=== PATIENT | male | born 1970 | race Caucasian/White ===

== ENCOUNTER → 2017-05-25 | Outpatient (CLI) | payer BC | LOC: FIMAGING 14:13 | PROVIDERS: ATTEND Orthopaedic Surgery | DX: Z01.818 Encounter for other preprocedural examination (principal); M16.11 Unilateral primary osteoarthritis, right hip ==

== ENCOUNTER → 2018-05-16 | Outpatient (CLI) | payer BC | LOC: FIMAGING 12:06 | PROVIDERS: ATTEND Orthopaedic Surgery | DX: Z01.818 Encounter for other preprocedural examination (principal); M16.11 Unilateral primary osteoarthritis, right hip ==

== ENCOUNTER 2018-05-27 10:21 | Inpatient (IN) | payer BC ==
--- NOTE | 2018-05-27 06:23 | PDIAF ---
- Diagnosis Diagnosis: right hip djd Code Status: Full Code - Medication Management Discharge Medications: electronically signed and located in the Home Medication List. - Orders Services needed: Home Care, Physical Therapy Home Care Face to Face: I certify that this patient was under my care and that I had the required [id number] encounter meeting the encounter requirements on the discharge day. My findings support the fact that the patient is homebound as defined in Home Care Face to Face Continued: CMS Chapter 7 Medicare Benefits Manual 30.1.1 , The condition of the patient is such that there exists a normal inability to leave home and consequently, leaving home would require a considerable and taxing effort. Diet Recommendation: no restrictions on diet Diet Texture: Regular Texture Diet Additional Instructions: TOTAL JOINT ARTHROPLASTY DISCHARGE INSTRUCTIONS 1. Your surgeon follows the [facility] protocol for reducing your risk of DVT (blood clots) following surgery. Medication will be ordered to prevent blood clots. A sudden increase in calf pain and/or swelling could indicate a blood clot in your leg. If this occurs, please call your surgeon or his/her librarian assistant. An ultrasound of the leg may be necessary to diagnose a blood clot. If you have conditions that make you a higher risk for blood clots, your surgeon may use more aggressive ways to prevent them. Notify your surgeon if you think you are a high risk for blood clots. 2. Wear your white surgical stockings (ALOK hose) for 2 weeks. This decreases your swelling and may help prevent blood clots. It is ok to remove ALOK hose at night time to give your legs a break. 3. Swelling and bruising in the surgical leg is common. If you feel that it is excessive, please notify your surgeon. 4. Elevate your surgical leg with the ankle above the hip several times every day. Please keep the leg straight when you elevate by putting pillows under your foot. Do not put pillows under your knee. This will make being able to fully straighten more difficult. This is uncomfortable, but try to do it as much as possible. 5. For total knee replacements use compressive wrap on your knee for 3-5 days after surgery, then you can discontinue it. 6. Use a walker or crutches for 1-2 weeks. Progress your weight-bearing as tolerated. You may start to use a cane when you feel stable and safe. 7. You will receive physical therapy instructions in the hospital. Continue those exercises at home. There are additional exercises in the total joint booklet you were given before surgery. Outpatient physical therapy will begin 7- 10 days after surgery. Please schedule this in advance. 8. Use ice on your knee at least 3-5 times every day for 30 minutes. This helps reduce pain and swelling. Also use it at night before falling asleep. 9. Leave your surgical dressing in place for 2 weeks. Your dressing is water resistant, but not waterproof. Cover it with Saran Wrap or Jazbo-z-Rjof before showering. You may shower as soon as you feel safe entering a shower. If you notice bleeding from your incision 2 or 3 days after surgery, please notify your surgeon. 10. Due to narcotics, decreased activity and altered diet, most patients experience constipation after surgery. Use xpsc-zjk-slshsgd stool softeners while you are on narcotics. 11. You may drive a car when you are comfortable bearing weight, have good muscular control of your leg and are off narcotics. This usually occurs 2-4 weeks after surgery, depending on which leg was operated on. 12. If there are questions not addressed here, please refer the [facility] book given for more information. If you still have questions, please contact your surgeon s office. 13. If you have a life-threatening emergency, please call 911 and go to the emergency room immediately. For non-life threatening emergencies, please call your physicians office for advice before going to the emergency room. - Follow Up Care Current Providers and Referrals: Ruiz Schmitt MD [Medical Doctor] - Unknown,Unknown [Primary Care Provider] -
--- NOTE | 2018-05-27 06:23 | PDHPUP ---
History & Physical Update H&P update statement: This history and physical update is based on an assessment of the patient which was completed after admission or registration (within 24 hours), but prior to the surgery/procedure. H&P update: no change in patient's condition since H&P completed
[2018-05-27] MEDS ORDERED: ceFAZolin 2 GM/DEXTROSE 100 ML IV ONE (10:32)
[2018-05-27] MEDS ORDERED: FAMOTIDINE 20 MG TAB PO ONE (10:32)
[2018-05-27] MEDS ORDERED: ACETAMINOPHEN 325 MG TAB PO ONE (10:32)
[2018-05-27] MEDS ORDERED: LR 1,000 ML IV ONE (10:34)
[2018-05-27] MEDS ORDERED: ceFAZolin 1 GM VIAL ONE (10:35)
[2018-05-27] MEDS ORDERED: TRANEXAMIC ACID 2,000 MG in NS 100 ML IV ONE (11:13)
[2018-05-27] MEDS ORDERED: ROPIVACAINE 0.2% 80 MG, EPINEPHrine 0.2 MG, KETOROLAC TROMETHAMINE 30 MG, morphINE 10 M... IU ONE (11:13)
[2018-05-27] MEDS ORDERED: MIDAZOLAM 2 MG/2 ML VIAL IVP ONE (11:23)
--- NOTE | 2018-05-27 11:27 | PDANEPAE ---
ANE History of Present Illness djd R hip s/f R Jordin assisted ANNA ANE Past Medical History - Cardiovascular History Hx Hypertension: No Hx Arrhythmias: No Hx Chest Pain: No Hx Coronary Artery / Peripheral Vascular Disease: No Hx CHF / Valvular Disease: No Hx Palpitations: No - Pulmonary History Hx COPD: No Hx Asthma/Reactive Airway Disease: No Hx Recent Upper Respiratory Infection: No Hx Oxygen in Use at Home: No Hx Sleep Apnea: No Sleep Apnea Screening Result - Last Documented: Negative - Neurologic History Hx Cerebrovascular Accident: No Hx Seizures: No Hx Dementia: No - Endocrine History Hx Diabetes: No - Renal History Hx Renal Disorders: No - Liver History Hx Hepatic Disorders: No - Neurological & Psychiatric Hx Hx Neurological and Psychiatric Disorders: No - Cancer History Hx Cancer: No Cancer History Comment: ENLARGED/MASS APPENDIX. DX 05/2016. CICI-COLECTOMY 2016 - Congenital Disorder History Hx Congenital Disorders: No - GI History Hx Gastrointestinal Disorders: Yes Gastrointestinal History Comment: CICI-COLECTOMY FOR CANCER APPENDIX - Other Health History Other Health History: NEG - Chronic Pain History Chronic Pain: Yes (R HIP) - Surgical History Prior Surgeries: CRISSY RTC. APPENDECTOMY. CICI-COLECTOMY. HERNIA ANE Review of Systems Review of Systems: - Exercise capacity METS (RN): 5 METS ANE Patient History - Allergies Allergies/Adverse Reactions: weed Allergy (Mild, Uncoded 05/28/17 16:26) Hives - Home Medications Home medications: home medication list seen and reviewed Home Medications: Herbals/Supplements -Info Only 05/20/18 [Last Taken 05/20/18] - NPO status NPO Status: no food or drink >8 hours NPO Since - Liquids (Date): 05/27/18 NPO Since - Liquids (Time): 08:00 NPO Since - Solids (Date): 05/26/18 NPO Since - Solids (Time): 20:30 - Anes Hx Anes Hx: no prior problems - Smoking Hx Smoking Status: Never smoked - Alcohol Use Alcohol Use: None - Family Anes Hx Family Anes Hx: none Family Hx Anesthesia Complications: NEG ANE Labs/Vital Signs - Vital Signs Blood Pressure: 126/84 Heart Rate: 72 Respiratory Rate: 16 O2 Sat (%): 96 Height: 185.42 cm Weight: 99.79 kg ANE Physical Exam - Airway Neck exam: FROM Mallampati Score: Class 2 Mouth exam: normal dental/mouth exam - Pulmonary Pulmonary: no respiratory distress - Cardiovascular Cardiovascular: regular rate and rhythym - ASA Status ASA Status: I ANE Anesthesia Plan Anesthesia Plan: spinal
[2018-05-27] MEDS ORDERED: PROPOFOL/EMULSION 500 MG/50 ML BOTTLE IV ONE ×3 (11:50→13:08)
[2018-05-27] MEDS ORDERED: fentaNYL 100 MCG/2 ML INJ ONE ×2 (11:50→14:21)
[2018-05-27] MEDS ORDERED: MEPERIDINE 25 MG/0.5 ML AMP IVP PRN (13:27)
[2018-05-27] MEDS ORDERED: ALBUTEROL 3 ML DEYVIAL IH PRN (13:27)
[2018-05-27] MEDS ORDERED: ONDANSETRON 4 MG/2 ML VIAL IVP PRN ×2 (13:27→13:30)
[2018-05-27] MEDS ORDERED: DEXAMETHASONE 4 MG/ML VIAL IVP PRN (13:27)
[2018-05-27] MEDS ORDERED: NALOXONE HCL 0.4 MG/ML INJ IVP PRN (13:27)
[2018-05-27] MEDS ORDERED: PHENYLEPHRINE HCL 100 MCG/ML SYR IVP PRN (13:27)
[2018-05-27] MEDS ORDERED: PROMETHAZINE HCL 25 MG/ML INJ IVP PRN ×2 (13:27→13:30)
[2018-05-27] MEDS ORDERED: METOCLOPRAMIDE 10 MG/2 ML VIAL IVP PRN ×2 (13:27→13:30)
[2018-05-27] MEDS ORDERED: LR 500 ML IV PRN (13:27)
[2018-05-27] MEDS ORDERED: LABETALOL HCL 5 MG/ML 20 ML MDV IVP PRN (13:27)
[2018-05-27] MEDS ORDERED: oxyCODONE IR 5 MG TAB PO PRN (13:27)
[2018-05-27] MEDS ORDERED: fentaNYL 100 MCG/2 ML INJ IVP PRN (13:27)
[2018-05-27] MEDS ORDERED: PROMETHAZINE HCL 25 MG SUPPR PR PRN (13:30)
[2018-05-27] MEDS ORDERED: LR 1,000 ML IV SCH (13:30)
[2018-05-27] MEDS ORDERED: BISACODYL 10 MG SUPP PR PRN (13:30)
[2018-05-27] MEDS ORDERED: diphenhydrAMINE 25 MG CAP PO PRN (13:30)
[2018-05-27] MEDS ORDERED: DIPHENOXYLATE/ATROPINE LOMOTIL 1 TAB PO PRN (13:30)
[2018-05-27] MEDS ORDERED: LACTULOSE 20 GM/30 ML UDCUP PO PRN (13:30)
[2018-05-27] MEDS ORDERED: TEMAZEPAM 15 MG CAP PO PRN (13:30)
[2018-05-27] MEDS ORDERED: POLYETHYLENE GLYCOL 3350 17 GM PKT PO PRN (13:30)
[2018-05-27] MEDS ORDERED: ONDANSETRON DISINTEGRATING 4 MG TAB PO PRN (13:30)
[2018-05-27] MEDS ORDERED: MAGNESIUM HYDROXIDE 30 ML UDCUP PO PRN (13:30)
--- NOTE | 2018-05-27 13:32 | POSTOPPROG ---
Post Op Note Date of Operation: 05/27/18 Surgeon: Ruiz Schmitt Fryline Attendant: lisa Anesthesiologist: goldie Anesthesia: Spinal Pre-op Diagnosis: right hip djd Post-op Diagnosis: same Indication: same Procedure: right patricia Inf/Abcess present in the surg proc area at time of surgery?: No Depth: Deep Incisional (Fascial) EBL: 100-500 Drains: Hemovac
--- NOTE | 2018-05-27 14:15 | POSTANESTH ---
Post Anesthetic Evaluation Cardiovascular Status: Normal, Stable Respiratory Status: Normal, Stable Level of Consciousness/Mental Status: Can Participate in Eval Pain Control: Adequate, Prn Tx Ordered Nausea/Vomiting Control: Adequate, Prn Tx Ordered Complications Possibly Related to Anesthesia: None Noted
--- NOTE | 2018-05-27 14:36 | PDMN ---
Medical Necessity Medical necessity: [facility]: S560 hip arthroplasty A-2 days OP: R ANNA --AUTH# [id number] APPROVED FOR CPT 41551 DONE INPT LOS 3 DAYS
[2018-05-27] MEDS: CYCLOBENZAPRINE 10 MG TAB PO PRN (15:35)
[2018-05-27] MEDS: TRANEXAMIC ACID 650 MG TAB PO SCH ×2 (15:36→21:49)
[2018-05-27] MEDS: ACETAMINOPHEN 325 MG TAB PO SCH (19:13)
[2018-05-27] MEDS: ceFAZolin 2 GM/DEXTROSE 100 ML IV SCH (19:45)
[2018-05-27] MEDS: FAMOTIDINE 20 MG TAB PO SCH (19:46)
[2018-05-27] MEDS: SENNOSIDES/DOCUSATE SODIUM TAB PO SCH (19:46)
[2018-05-27] MEDS: ASPIRIN 325 MG TAB PO SCH (21:53)
[2018-05-28] MEDS: ACETAMINOPHEN 325 MG TAB PO SCH ×3 (00:23→10:57)
[2018-05-28] MEDS: CYCLOBENZAPRINE 10 MG TAB PO PRN (00:23)
[2018-05-28] MEDS: ceFAZolin 2 GM/DEXTROSE 100 ML IV SCH (04:23)
[2018-05-28] MEDS: oxyCODONE IR 5 MG TAB PO PRN ×3 (04:33→13:36)
[2018-05-28] MEDS: TRANEXAMIC ACID 650 MG TAB PO SCH (05:16)
--- NOTE | 2018-05-28 07:13 | PDIAF ---
- Diagnosis Diagnosis: right hip djd Code Status: Full Code - Medication Management Discharge Medications: electronically signed and located in the Home Medication List. - Orders Services needed: Home Care, Physical Therapy Home Care Face to Face: I certify that this patient was under my care and that I had the required [id number] encounter meeting the encounter requirements on the discharge day. My findings support the fact that the patient is homebound as defined in Home Care Face to Face Continued: CMS Chapter 7 Medicare Benefits Manual 30.1.1 , The condition of the patient is such that there exists a normal inability to leave home and consequently, leaving home would require a considerable and taxing effort. Diet Recommendation: no restrictions on diet Diet Texture: Regular Texture Diet Additional Instructions: TOTAL JOINT ARTHROPLASTY DISCHARGE INSTRUCTIONS 1. Your surgeon follows the [facility] protocol for reducing your risk of DVT (blood clots) following surgery. Medication will be ordered to prevent blood clots. A sudden increase in calf pain and/or swelling could indicate a blood clot in your leg. If this occurs, please call your surgeon or his/her transition assistant. An ultrasound of the leg may be necessary to diagnose a blood clot. If you have conditions that make you a higher risk for blood clots, your surgeon may use more aggressive ways to prevent them. Notify your surgeon if you think you are a high risk for blood clots. 2. Wear your white surgical stockings (ALOK hose) for 2 weeks. This decreases your swelling and may help prevent blood clots. It is ok to remove ALOK hose at night time to give your legs a break. 3. Swelling and bruising in the surgical leg is common. If you feel that it is excessive, please notify your surgeon. 4. Elevate your surgical leg with the ankle above the hip several times every day. Please keep the leg straight when you elevate by putting pillows under your foot. Do not put pillows under your knee. This will make being able to fully straighten more difficult. This is uncomfortable, but try to do it as much as possible. 5. For total knee replacements use compressive wrap on your knee for 3-5 days after surgery, then you can discontinue it. 6. Use a walker or crutches for 1-2 weeks. Progress your weight-bearing as tolerated. You may start to use a cane when you feel stable and safe. 7. You will receive physical therapy instructions in the hospital. Continue those exercises at home. There are additional exercises in the total joint booklet you were given before surgery. Outpatient physical therapy will begin 7- 10 days after surgery. Please schedule this in advance. 8. Use ice on your knee at least 3-5 times every day for 30 minutes. This helps reduce pain and swelling. Also use it at night before falling asleep. 9. Leave your surgical dressing in place for 2 weeks. Your dressing is water resistant, but not waterproof. Cover it with Saran Wrap or Plvsw-y-Xssz before showering. You may shower as soon as you feel safe entering a shower. If you notice bleeding from your incision 2 or 3 days after surgery, please notify your surgeon. 10. Due to narcotics, decreased activity and altered diet, most patients experience constipation after surgery. Use sgsz-bpk-waiboki stool softeners while you are on narcotics. 11. You may drive a car when you are comfortable bearing weight, have good muscular control of your leg and are off narcotics. This usually occurs 2-4 weeks after surgery, depending on which leg was operated on. 12. If there are questions not addressed here, please refer the [facility] book given for more information. If you still have questions, please contact your surgeon s office. 13. If you have a life-threatening emergency, please call 911 and go to the emergency room immediately. For non-life threatening emergencies, please call your physicians office for advice before going to the emergency room. - Follow Up Care Current Providers and Referrals: Ruiz Schmitt MD [Medical Doctor] - Unknown,Unknown [Unknown] -
--- NOTE | 2018-05-28 07:15 | SOAPPROG ---
SOAP Progress Note Assessment/Plan: Assessment: s/p patricia Plan:stable d.c home anterior precautions f/u at two weeks dvt precautions reviewed 05/28/18 07:13 Subjective: no co no cp or sob tracy po Objective: Vital Signs Temp Pulse Resp BP Pulse Ox 36.7 C 66 15 116/68 98 05/28/18 04:00 05/28/18 04:00 05/28/18 04:00 05/28/18 04:00 05/28/18 04:00 Laboratory Results 05/28/18 04:22 05/27/18 05/28/18 05/29/18 05:59 05:59 05:59 Intake Total 2050 Output Total 1155 Balance 895 dressing intact intact pdf,ehl toes warm and pink neg homans agusto xrays anatomic, no fx or lucency ICD10 Worksheet Patient Problems: Problems Problem Status Onset Hip arthritis Acute - ICD10 Problem Qualifiers (1) Hip arthritis
[2018-05-28 08:30] VITALS: BP 123/68
[2018-05-28] MEDS: ASPIRIN 325 MG TAB PO SCH (09:01)
[2018-05-28] MEDS: SENNOSIDES/DOCUSATE SODIUM TAB PO SCH (09:01)
[2018-05-28] MEDS: FAMOTIDINE 20 MG TAB PO SCH (09:02)
--- NOTE | 2018-05-28 12:19 | ASMTLACE ---
LACE Length of stay for Answers: 2 days current admission Acuity / Level of Answers: Yes Care: Did the patient have an inpatient admission? Comorbidities - select Answers: Opioid dependence all that apply / Chronic pain # of Emergency department Answers: 0 visits in the last 6 months Score: 9 Date Signed: 05/28/2018 12:19 PM Electronically Signed By:JUAN Muñoz
--- NOTE | 2018-05-28 12:21 | ASMTCMCOM ---
CM Note CM Note Notes: PT rec home/outpatient. Pt declines HHC. Pt resides in [place] and will stay local with his mother near [place]. No CM d/c needs identified. Date Signed: 05/28/2018 12:20 PM Electronically Signed By:JUAN Muñoz
--- NOTE | 2018-05-28 13:06 | GDS ---
BARREL ASSEMBLER HELPER: None. PREOPERATIVE DIAGNOSIS: Right hip degenerative joint disease. POSTOPERATIVE DIAGNOSIS: Right hip degenerative joint disease. PROCEDURE: Right total hip arthroplasty. HISTORY OF PRESENT ILLNESS: The patient is a 48-year-old gentleman who has end-stage arthritis to hi s right hip. Clinical and radiographic features are consistent with this. He presents for elective total hip replacement. HOSPITAL COURSE: The patient was admitted overnight after an uncomplicated total hip arthroplasty. He tolerated the procedure well. Postoperatively, he had no complications. At the time of discharge , he is tolerating an oral diet. Pain is well controlled on oral medicines. He is voiding without d ifficulty. Dressing is clean, dry, and intact. He has been cleared by Physical Therapy. DISCHARGE ACTIVITY: He is weightbearing as tolerated. Anterior hip precautions. Keep the dressing intact. If it becomes saturated, change daily with a dry gauze pressure dressing. Seek attention fo r increasing redness, swelling, drainage, discharge, or other focal complaints otherwise follow up in 2 weeks. DISCHARGE MEDICATIONS: Oxycodone 5 mg 1 to 2 every 6 hours p.r.n. pain, aspirin 325 mg p.o. daily. /[id number]/MODL
--- NOTE | 2018-05-28 13:06 | GOP ---
DATE OF OPERATION: 05/27/2018 SURGEON: Ruiz Schmitt MD BARBER INSTRUCTOR: Corey Cesar, LITERACY COORDINATOR, HEARING INSTRUMENT SPECIALIST, surgical appliance fitter, who was a medical necessity for the entirety of the case. PREOPERATIVE DIAGNOSIS: Right hip degenerative joint disease. POSTOPERATIVE DIAGNOSIS: Right hip degenerative joint disease. PROCEDURE PERFORMED: Right total hip arthroplasty, MAKOplasty. FINDINGS: SPECIMENS: To Pathology, femoral head. DESCRIPTION OF PROCEDURE: Patient was identified in the preanesthesia area. The right hip clearly d emarcated as operative site with indelible marker. He was given 2 g of Ancef intravenously in route to the operative suite. In the OR, his spinal anesthetic was placed. Attention was turned to the pe lvis and both lower extremities, which were sterilely prepped and draped in the usual fashion. Appro priate time-out procedure was carried out. Attention was first turned to the left iliac crest. A 2 cm incision was made. Three pins were then placed, followed by . Attention was then turned to the right hip and an anterior approach was made. Thick subcutaneous flaps were elevated. The fascia of the tensor fascia alison was opened a nd retracted laterally. The underlying vascular structures were identified, ligated, caut erized, transected. The rectus was elevated off the capsule and retractors were placed in an extraca psular position. T capsulotomy was then made. Retractors were placed into an intracapsular position . An acetabular checkpoint was placed. A bony wedge was withdrawn from the femoral neck, followed b y removal of the head, and there was gross arthritis. The remnants of the acetabular labrum were sha rply excised. The bony landmarks were entered into the computer in standard fashion. Using the TROY plasty robot, the resection was made for a 58 mm acetabular shell. A 58 mm acetabular shell was impa cted, confirmed to be fully seated 40 degrees of 20 degrees. A 0-degree X3 ole er was placed and confirmed to be fully seated. Attention was turned to the femur, which was delivered with the use of extension of the table, soft t issue releases, and retractor placement. The proximal canal was opened. Serial broaching carried ou t to a size 6 stem. An intraoperative trial reduction was carried out, and ultimately the 36 mm +2.5 mm neck length was selected. Intraoperative fluoroscopy demonstrated appropriate positioning and re duction, and leg lengths were equal with full extension, 90 degrees of rotation, and no instability. The trial stem was withdrawn. The final size size 6 stem was then impacted and confirmed to be full y seated. The 36 mm +2.5 mm Biolox head was placed to the cleansed trunnion, which was copiously irr igated and reduced with no instability. The wound was copiously irrigated and a 10-[place] Citizen drain was placed. The tissues were injected with a joint cocktail of ropivacaine, , epine phrine. The fascia was closed using 0 Vicryl, subcutaneous tissue using 2-0 Monocryl, and the skin s tapled. Sterile bandages were applied. The patient was awakened, extubated, and taken to recovery r oom in good, stable condition. HISTORY OF PRESENT ILLNESS: The patient is a 48-year-old gentleman with end-stage arthritis to his r ight hip. He presents today for elective total hip replacement. He has failed attempts at conservat violet management. He understands the risks, benefits, alternatives, and wished to proceed. TOTAL TOURNIQUET TIME: None. COMPLICATIONS: None. IMPLANTS: Mcarthur Trident II acetabular shell size 58 mm, 0-degree X3 liner with 36 mm inner diamete r, Accolade II , Biolox ceramic head 36 mm, +2.5 mm neck length. /[id number]/MODL
== END 2018-05-28 13:50 | disposition home or self-care (01) | DRG 470 ==
LOC: F3N 10:21
PROVIDERS: ADMIT Orthopaedic Surgery; ATTEND Orthopaedic Surgery
PROC: 8E0Y0CZ Robotic Assisted Procedure of Lower Extremity, Open Approach (ICD-10-PCS; principal; 2018-05-27 12:15)
PROC: 0SR904Z Replacement of Right Hip Joint with Ceramic on Polyethylene Synthetic Substitute, Open Approach (ICD-10-PCS; principal; 2018-05-27 12:15)
DX: M16.11 Unilateral primary osteoarthritis, right hip (principal)
CPT/HCPCS: 97161-GP; 97165-GO; 97535-GO; J0171; J0690; J1885; J2250; J2270; J2704; J2795; J3010

== ENCOUNTER → 2018-07-24 | Outpatient (CLI) | payer BC | LOC: BMCIMAGING 11:32 | PROVIDERS: ATTEND Orthopaedic Surgery | DX: Z47.1 Aftercare following joint replacement surgery (principal); Z96.641 Presence of right artificial hip joint; S42.254A Nondisplaced fracture of greater tuberosity of right humerus, initial encounter for closed fracture ==